=== PATIENT | male | born 1980 | race Caucasian/White ===

== ENCOUNTER 2019-11-14 15:40 | Emergency (ER) | payer SELFPAY ==
[2019-11-14] MEDS ORDERED: Ondansetron 4 MG/2 ML SDV IVPUSH ONE (16:22)
[2019-11-14] MEDS ORDERED: Sodium Chloride 0.9% 1,000 ML IV ONE (16:22)
[2019-11-14] MEDS ORDERED: Ketorolac 30 MG/ML SDV IVPUSH ONE (16:22)
--- NOTE | 2019-11-14 16:25 | EDM.PDOC ---
ED HPI GENERAL MEDICAL PROBLEM - General Chief Complaint: Abdominal Pain Stated Complaint: ABD PAIN Time Seen by Provider: 11/14/19 15:41 Source of Information: Reports: Patient History Limitations: Reports: No Limitations - History of Present Illness INITIAL COMMENTS - FREE TEXT/NARRATIVE: HISTORY AND PHYSICAL: History of present illness: Patient is a 39-year-old male who presents to the ED today with concern of left lower quadrant pain that has started since yesterday. Patient states he has had a history of diverticulitis in the past and that his pain today feels similar to past diverticulitis infection. Patient states that in the past he has been offered admission but states that he has always refused this and taken antibiotics at home with resolution of his symptoms. Patient states he has a history of cholecystectomy but denies any other abdominal surgeries. Patient denies any associated symptoms or any other symptoms or concerns. Patient denies fever, chills, chest pain, shortness of breath, or cough. Denies headache, neck stiff ness, change in vision, syncope, or near syncope. Denies nausea, vomiting, abdominal pain, diarrhea, constipation, or dysuria. Has not noted any blood in urine or stool. Patient has been eating and drinking appropriately. Review of systems: As per history of present illness and below otherwise all systems reviewed and negative. Past medical history: As per history of present illness and as reviewed below otherwise noncontributory. Surgical history: As per history of present illness and as reviewed below otherwise noncontributory. Social history: See social history for further information Family history: As per history of present illness and as reviewed below otherwise noncontributory. Physical exam: General: Patient is alert, oriented, and in no acute distress. Patient laying comfortably on exam table. HEENT: Atraumatic, normocephalic, pupils equal and reactive bilaterally, negative for conjunctival pallor or scleral icterus, mucous membranes moist, TMs normal bilaterally, throat clear, neck supple, nontender, trachea midline. No drooling or trismus noted. No meningeal signs. No hot potato voice noted. Lungs: Clear to auscultation, breath sounds equal bilaterally, chest nontender. Heart: S1S2, regular rate and rhythm without overt murmur Abdomen: Soft, nondistended, moderate-severe tenderness to palpation of the LLQ without guarding. Negative for masses or hepatosplenomegaly. Negative for costovertebral tenderness. Pelvis: Stable nontender. Genitourinary: Deferred. Rectal: Deferred. Skin: Intact, warm, dry. No lesions or rashes noted. Extremities: Atraumatic, negative for cords or calf pain. Neurovascular unremarkable. Neuro: Awake, alert, oriented. Cranial nerves II through XII unremarkable. Cerebellum unremarkable. Motor and sensory unremarkable throughout. Exam nonfocal. Notes: Discussed importance for follow-up with a primary care provider as well as general surgery. Patient placed on expedited follow-up list for follow-up with primary care. Voices understanding and is agreeable to plan of care. Denies any further questions or concerns at this time. Diagnostics: CBC, CMP, UA, lipase, abd pelvic CT w cont Therapeutics: NS, Zofran, Toradol, Morphine Prescription: Flagyl, Ciprofloxacin Impression: Acute diverticulitis, uncomplicated Plan: 1. Take medication as prescribed. You can alternate ibuprofen and Tylenol as directed for pain and discomfort. 2. Remain on a clear liquid diet for the next 1 to 2 days. Then advance diet as tolerated. 3. Follow-up with a primary care provider as well as a general surgeon as discussed. 4. Turn to the ED as needed and as discussed. Definitive disposition and diagnosis as appropriate pending reevaluation and review of above. Abdominal Pain Pain Score (Numeric/FACES): 10 - Related Data Allergies Allergy/AdvReac Type Severity Reaction Status Date / Time No Known Allergies Allergy Verified 11/14/19 16:08 Home Meds: Home Meds Levothyroxine Sodium [Synthroid] 25 mcg PO DAILY 11/14/19 [History] Past Medical History Other Gastrointestinal History: Diverticulitis Endocrine/Metabolic History: Reports: Hypothyroidism - Infectious Disease History Infectious Disease History: Reports: Chicken Pox - Past Surgical History GI Surgical History: Reports: Cholecystectomy Social & Family History - Tobacco Use Smoking Status *Q: Current Every Day Smoker Years of Tobacco use: 15 Packs/Tins Daily: 1 - Caffeine Use Caffeine Use: Reports: Soda - Recreational Drug Use Recreational Drug Use: No Recreational Drug Type: Reports: Marijuana/Hashish ED ROS GENERAL - Review of Systems Review Of Systems: Comprehensive ROS is negative, except as noted in HPI. ED EXAM, GENERAL - Physical Exam Exam: See Below (see dictation) Course - Vital Signs Last Recorded V/S: Last Vital Signs Temp 97.5 F 04/04/20 16:09 Pulse 87 11/14/19 17:40 Resp 18 11/14/19 17:40 BP 136/85 11/14/19 17:40 Pulse Ox 98 11/14/19 17:40 - Orders/Labs/Meds Labs: Laboratory Tests 11/14/19 11/14/19 11/14/19 Range/Units 16:18 16:36 16:39 WBC 6.44 (4.0-11.0) K/uL RBC 5.75 (4.50-5.90) M/uL Hgb 17.3 H (13.0-17.0) g/dL Hct 50.5 H (38.0-50.0) % MCV 87.8 (80.0-98.0) fL MCH 30.1 (27.0-32.0) pg MCHC 34.3 (31.0-37.0) g/dL RDW Std Deviation 43.1 (28.0-62.0) fl RDW Coeff of Valerie 13 (11.0-15.0) % Plt Count 150 (150-400) K/uL MPV 10.60 (7.40-12.00) fL Neut % (Auto) 77.3 (48.0-80.0) % Lymph % (Auto) 11.6 L (16.0-40.0) % [place] % (Auto) 10.4 (0.0-15.0) % Eos % (Auto) 0.5 (0.0-7.0) % Baso % (Auto) 0.2 (0.0-1.5) % Neut # (Auto) 5.0 (1.4-5.7) K/uL Lymph # (Auto) 0.8 (0.6-2.4) K/uL [place] # (Auto) 0.7 (0.0-0.8) K/uL Eos # (Auto) 0.0 (0.0-0.7) K/uL Baso # (Auto) 0.0 (0.0-0.1) K/uL Nucleated RBC % 0.0 /100WBC Nucleated RBCs # 0 K/uL Sodium 137 (136-148) mmol/L Potassium 4.2 (3.5-5.1) mmol/L Chloride 100 (98-107) mmol/L Carbon Dioxide 26.5 (21.0-32.0) mmol/L BUN 14 (7.0-18.0) mg/dL Creatinine 1.2 (0.8-1.3) mg/dL Est Cr Clr Drug Dosing 86.18 mL/min Estimated GFR (MDRD) > 60.0 ml/min Glucose 103 (74-106) mg/dL Calcium 9.0 (8.5-10.1) mg/dL Total Bilirubin 0.8 (0.2-1.0) mg/dL AST 89 H (15-37) IU/L ALT 95 H (14-63) IU/L Alkaline Phosphatase 102 (46-116) U/L Total Protein 8.0 (6.4-8.2) g/dL Albumin 3.7 (3.4-5.0) g/dL Globulin 4.3 H (2.6-4.0) g/dL Albumin/Globulin Ratio 0.9 (0.9-1.6) Lipase 77 (73-393) U/L Urine Color DARK YELLOW Urine Appearance CLEAR Urine pH 5.5 (5.0-8.0) Ur Specific [place] >= 1.030 (1.001-1.035) Urine Protein 30 H (NEGATIVE) mg/dL Urine Glucose (UA) NEGATIVE (NEGATIVE) mg/dL Urine Ketones TRACE H (NEGATIVE) mg/dL Urine Occult Blood NEGATIVE (NEGATIVE) Urine Nitrite NEGATIVE (NEGATIVE) Urine Bilirubin MODERATE H (NEGATIVE) Urine Ictotest NEGATIVE Urine Urobilinogen 1.0 (<2.0) EU/dL Ur Leukocyte Esterase NEGATIVE (NEGATIVE) Urine RBC 0-1 (0-2/HPF) Urine WBC 0-2 (0-5/HPF) Ur Epithelial Cells FEW (NONE-FEW) Amorphous Sediment LIGHT (NEGATIVE) Urine Bacteria 3+ H (NEGATIVE) Urine Mucus LIGHT (NONE-MOD) Meds: Medications Discontinued Medications Generic Name Dose Route Start Last Admin Trade Name Freq PRN Reason Stop Dose Admin Sodium Chloride 1,000 mls @ 999 mls/hr 11/14/19 16:22 11/14/19 16:43 Normal Saline IV 11/14/19 17:22 999 mls/hr STAT ONE Administration Ketorolac Tromethamine 30 mg 11/14/19 16:22 11/14/19 16:45 Toradol IVPUSH 11/14/19 16:23 30 mg ONETIME ONE Administration Morphine Sulfate 2 mg 11/14/19 17:43 Morphine IVPUSH 11/14/19 17:44 ONETIME ONE Ondansetron HCl 4 mg 11/14/19 16:22 11/14/19 16:48 Zofran IVPUSH 11/14/19 16:23 Not Given ONETIME ONE Departure - Departure Time of Disposition: 17:56 Disposition: Home, Self-Care 01 Clinical Impression: Diverticulitis - Discharge Information Referrals: PCP,Not In Area [Primary Care Provider] - Forms: ED Department Discharge Additional Instructions: The following information is given to patients seen in the emergency department who are being discharged to home. This information is to outline your options for follow-up care. We provide all patients seen in our emergency department with a follow-up referral. The need for follow-up, as well as the timing and circumstances, are variable depending upon the specifics of your emergency department visit. If you don't have a primary care physician on staff, we will provide you with a referral. We always advise you to contact your personal physician following an emergency department visit to inform them of the circumstance of the visit and for follow-up with them and/or the need for any referrals to a consulting specialist. The emergency department will also refer you to a specialist when appropriate. This referral assures that you have the opportunity for follow-up care with a specialist. All of these measure are taken in an effort to provide you with optimal care, which includes your follow-up. Under all circumstances we always encourage you to contact your private physician who remains a resource for coordinating your care. When calling for follow-up care, please make the office aware that this follow-up is from your recent emergency room visit. If for any reason you are refused follow-up, please contact the [facility] Emergency Department at and asked to speak to the emergency department charge nurse. [facility] [address] [place] [id number] [id number] [facility] [place] - General Surgery Professional [address], [address] [place] [address] 1. Take medication as prescribed. You can alternate ibuprofen and Tylenol as directed for pain and discomfort. 2. Remain on a clear liquid diet for the next 1 to 2 days. Then advance diet as tolerated. 3. Follow-up with a primary care provider as well as a general surgeon as discussed. 4. Turn to the ED as needed and as discussed. Sepsis Event Note - Evaluation Sepsis Screening Result: No Definite Risk - Focused Exam Vital Signs: Vital Signs Temp Pulse Resp BP Pulse Ox 11/14/19 17:40 87 18 136/85 98 11/14/19 16:09 97.5 F 92 16 138/83 97 Date Exam was Performed: 11/14/19 Time Exam was Performed: 17:55
[2019-11-14 17:15] LABS: BLOOD UREA NITROGEN,BUN 14 mg/dL (7.0-18.0); CARBON DIOXIDE,CO2 26.5 mmol/L (21.0-32.0); CHLORIDE,CL 100 mmol/L (98-107); GLUCOSE RANDOM 103 mg/dL (74-106); LIPASE 77 U/L (73-393); POTASSIUM,K 4.2 mmol/L (3.5-5.1); SODIUM,NA 137 mmol/L (136-148)
[2019-11-14] MEDS ORDERED: Morphine 2 MG/ML Syringe IVPUSH ONE (17:43)
--- NOTE | 2019-11-14 17:46 | CT ---
CT abdomen and pelvis Technique: Multiple axial sections were obtained from above the dome of the diaphragm inferiorly through the pubic symphysis. Intravenous contrast was utilized. No oral contrast has been given. Findings: Inflammatory change is noted around a portion of the sigmoid colon. There is mild diverticulosis being seen and findings most likely represent diverticulitis. No fluid collections of abscess are seen. No free fluid is identified. Other findings: Visualized lung bases showed nothing acute. Liver contains no focal parenchymal abnormality. Spleen appears within normal limits. Surgical clips are seen from prior cholecystectomy. Adrenal glands show no nodule. Pancreas shows no discrete abnormality. Aorta shows no aneurysm. No retroperitoneal adenopathy or mesenteric abnormalities are seen. No pelvic mass or adenopathy is identified. Appendix is felt to be visualized which is within normal limits. Bone window settings were reviewed which showed no acute osseous finding. Impression: 1. Findings compatible with mild diverticulosis involving the sigmoid colon. 2. No other acute finding is seen on CT study of the abdomen and pelvis. Diagnostic code #3 Study was dictated in MDT
== END 2019-11-14 18:29 | disposition home or self-care (01) ==
LOC: MW.ED 15:40
DX: K57.32 Diverticulitis of large intestine without perforation or abscess without bleeding (principal); F17.210 Nicotine dependence, cigarettes, uncomplicated; E03.9 Hypothyroidism, unspecified; Z79.899 Other long term (current) drug therapy
CPT/HCPCS: 36415; 74177; 80053; 81001; 83690; 85025; 96361; 96374; 96375; 99284; J1885; J2270; J7030

== ENCOUNTER 2021-07-08 11:26 | Emergency (ER) | payer SELFPAY ==
[2021-07-08] MEDS ORDERED: Sodium Chloride 0.9% 2.5 ML Syringe FLUSH PRN (12:19)
[2021-07-08] MEDS ORDERED: Sodium Chloride 0.9% 10 ML Syringe FLUSH PRN (12:19)
[2021-07-08] MEDS ORDERED: HYDROmorphone 1 MG/ML Syringe IVPUSH ONE ×2 (12:20→14:43)
[2021-07-08] MEDS ORDERED: Ondansetron 4 MG/2 ML SDV IVPUSH ONE ×2 (12:20→14:43)
[2021-07-08] MEDS ORDERED: Sodium Chloride 0.9% 1,000 ML IV ONE ×2 (12:20→14:46)
--- NOTE | 2021-07-08 12:27 | EDM.PDOC ---
ED HPI GENERAL MEDICAL PROBLEM - General Chief Complaint: Abdominal Pain Stated Complaint: STOMACH PAIN Time Seen by Provider: 07/08/21 11:31 Source of Information: Reports: Patient History Limitations: Reports: No Limitations - History of Present Illness INITIAL COMMENTS - FREE TEXT/NARRATIVE: HISTORY AND PHYSICAL: History of present illness: The patient is a 34-year-old male who presents to the emergency department with complaints of mid abdominal pain that started around 07:00 this morning. The patient has a history of diverticulitis but states this is not the same pain. The patient states that he is unable to eat as he has been having vomiting yellow-green bile. Patient denies any fever, chills, headache, change in vision, syncope or near syncope. Denies any chest pain, back pain, shortness of breath or cough. Denies any diarrhea, constipation or dysuria. Has not noted any blood in urine or stool. Review of systems: As per history of present illness and below otherwise all systems reviewed and negative. Past medical history: As per history of present illness and as reviewed below otherwise noncontributory. Surgical history: As per history of present illness and as reviewed below otherwise noncontributory. Social history: See social history for further information Family history: As per history of present illness and as reviewed below otherwise noncontributory. Physical exam: General: Well developed and well nourished. Alert and orientated x 3. Nontoxic in appearance and in no acute distress. Vital signs are stable and have been reviewed by me. Nursing notes were reviewed. HEENT: Atraumatic, normocephalic, pupils equal and reactive bilaterally, negative for conjunctival pallor or scleral icterus, mucous membranes moist, TMs normal bilaterally, throat clear, neck supple, nontender, trachea midline. No drooling or trismus noted. No meningeal signs. No hot potato voice noted. Lungs: Clear to auscultation bilaterally. No wheezes, rales, or rhonchi. Chest nontender. Normal work of breathing, no accessory muscles used. Heart: S1S2, regular rate and rhythm without overt murmur, gallops, or rubs. No JVD. No peripheral edema Abdomen: Soft, nondistended, mid abdominal tenderness. Normoactive bowel sounds. Negative for masses or costovertebral tenderness. Skin: Intact, warm, dry. No lesions or rashes noted. Hematologic: No petechiae or purpra. Mucosa appropriate color and normal nail bed color and refill. Extremities: Atraumatic, moves all extremities per self without difficulty or deficits, negative for cords or calf pain. Neurovascular unremarkable. Neuro: Awake, alert, oriented. Cranial nerves II through XII unremarkable. Cerebellum unremarkable. Motor and sensory unremarkable throughout. Exam nonfocal. Psychiatric: Mood and affect are appropriate. Normal thought process. Answering questions appropriately. Notes: *This patient was seen and evaluated during the 2019 SARS-CoV-2 novel coronavirus pandemic period. Community viral transmission is ongoing at time of this encounter and the emergency department is operating under pandemic response procedures. As stated above the patient is a 40-year-old male who presents to the emergency department with very umbilical abdominal pain that started this morning. The patient does have a previous history of diverticulitis but states this is not the same type of pain. I will treat the patient's pain with IV fluids, Zofran, and Dilaudid. I have ordered a CBC, CMP, urinalysis, and CT of abdomen/pelvis with contrast. The patient is agreeable with this plan. The patient's CBC is remarkable for a white blood cell count of 15.28 with neutrophils of 83.8. The patient's chemistry is unremarkable. The CT IMPRESSION: Appendix appears mildly dilated up to 9 millimeters, increased from the prior exam. There is currently no significant adjacent inflammatory changes, however, this could represent an early appendicitis. Also, there is mild wall thickening of the sigmoid colon over a long segment at the area of prior diverticulitis. There is currently no adjacent inflammatory changes to suggest active inflammation, however, cannot exclude an early diverticulitis. Recommend ensuring that the patient is up-to-date on colon cancer screening. I consulted with Dr. Babin, surgeon, regarding possible early appendicitis or diverticulitis. Dr. Lamb came into the emergency department and reviewed the CT. I had treated the patient with 2 rounds of Zofran and 2 rounds of Dilaudid long with IV fluids. The patient was feeling okay at the time and stated that he did not need to be examined by Dr. Babin. I informed Dr. Babin of this. I have prescribed Cipro 500 mg p.o. twice daily for 10 days along with Metronidazole 500mg by mouth every eight hours for 10 days and Zofran 4 mg ODT every 6 hours as needed for nausea. I have educated the patient that he needs to follow-up with his primary care that he possibly needs to get a colonoscopy. The patient is agreeable with this discharge plan. I have talked with the patient about today's findings, in addition to providing specific details for plan of care. Reassessment at the time of disposition demo nstrates that the patient is in no acute distress. The patient is stable for discharge, counseling was provided and we discussed in great detail signs and symptoms that would prompt them to return to the Emergency Department. Medication, follow up and supportive care measures were reviewed and discussed. Voices understanding and is agreeable to plan of care. Denies any further questions or concerns at this time. Diagnostics: CBC, CMP, urinalysis, CT of abdomen/pelvis Therapeutics: IV fluids, Zofran, Dilaudid Prescription:Cipro 500 mg p.o. twice daily for 10 days and Metronidazole 500mg by mouth every eight hours for 10 days and Zofran 4 mg ODT every 6 hours as needed for nausea Impression: Abdominal pain Plan: 1. You were evaluated today on an emergent basis. Your complaints of lower abdominal pain was evaluated with blood work and your white blood cell count was found to be elevated. Your CT IMPRESSION: Appendix appears mildly dilated up to 9 millimeters, increased from the prior exam. There is currently no significant adjacent inflammatory changes, however, this could represent an early appendicitis. Also, there is mild wall thickening of the sigmoid colon over a long segment at the area of prior diverticulitis. There is currently no adjacent inflammatory changes to suggest active inflammation, however, cannot exclude an early diverticulitis. Recommend ensuring that the patient is up-to-date on colon cancer screening. As stated in your CT results if you have not had a colonoscopy due to your history of the wall thickening of the sigmoid colon you really need to get one. The surgeon did come in and you declined to be examined by time. I have started you on Cipro 500 mg p.o. twice daily for 10 days and Metronidazole 500mg by mouth every eight hours for 10 days and Zofran 4 mg ODT every 6 hours as needed for nausea was sent to [facility]. As we talked about if you are pain is uncontrollable or you are unable to control your nausea you need to return to the emergency department. if you develop a fever you need to return to the emergency department. 2. You can alternate Tylenol and ibuprofen as needed for pain and fever management. 3. We encourage you to follow up with your primary care provider and/or recommended specialist in the next few days for re-evaluation and further care/management. 4. If your symptoms should worsen, new symptoms develop or any of the signs and symptoms we discussed should arise please return to the emergency room or call 911 (if needed). Definitive disposition and diagnosis as appropriate pending reevaluation and review of above. Abdomen Pain Score (Numeric/FACES): 10 - Related Data Allergies Allergy/AdvReac Type Severity Reaction Status Date / Time No Known Allergies Allergy Verified 07/08/21 12:16 Home Meds: Home Meds Levothyroxine Sodium [Synthroid] 25 mcg PO DAILY 11/14/19 [History] Ciprofloxacin [Ciprofloxacin HCl] 500 mg PO Q12H 10 Days #19 tab 07/08/21 [Rx] Ondansetron [Zofran ODT] 4 mg PO Q6H PRN #10 tab.dis 07/08/21 [Rx] metroNIDAZOLE [Metronidazole] 500 mg PO Q8HR 10 Days #29 tablet 07/08/21 [Rx] Past Medical History Other Gastrointestinal History: Diverticulitis Endocrine/Metabolic History: Reports: Hypothyroidism - Infectious Disease History Infectious Disease History: Reports: Chicken Pox - Past Surgical History GI Surgical History: Reports: Cholecystectomy Social & Family History - Caffeine Use Caffeine Use: Reports: Soda ED ROS GENERAL - Review of Systems Review Of Systems: Comprehensive ROS is negative, except as noted in HPI. ED EXAM, GI/ABD - Physical Exam Exam: See Below (See dictation) Course - Vital Signs Last Recorded V/S: Last Vital Signs Temp 97.3 F 07/08/21 15:32 Pulse 58 L 07/08/21 15:42 Resp 16 07/08/21 15:42 BP 110/73 07/08/21 15:42 Pulse Ox 98 07/08/21 15:42 - Orders/Labs/Meds Orders: Active Orders 24 hr Category Date Time Status Saline Lock Insert [OM.PC] Stat Oth 07/08/21 12:19 Ordered Labs: Laboratory Tests 07/08/21 07/08/21 Range/Units 12:15 12:15 WBC 15.28 H (4.0-11.0) K/uL RBC 5.69 (4.50-5.90) M/uL Hgb 17.3 H (13.0-17.0) g/dL Hct 48.4 (38.0-50.0) % MCV 85.1 (80.0-98.0) fL MCH 30.4 (27.0-32.0) pg MCHC 35.7 (31.0-37.0) g/dL RDW Std Deviation 42.0 (28.0-62.0) fl RDW Coeff of Valerie 14 (11.0-15.0) % Plt Count 282 (150-400) K/uL MPV 10.70 (7.40-12.00) fL Neut % (Auto) 83.8 H (48.0-80.0) % Lymph % (Auto) 9.9 L (16.0-40.0) % Stewart % (Auto) 6.1 (0.0-15.0) % Eos % (Auto) 0.1 (0.0-7.0) % Baso % (Auto) 0.1 (0.0-1.5) % Neut # (Auto) 12.8 H (1.4-5.7) K/uL Lymph # (Auto) 1.5 (0.6-2.4) K/uL Stewart # (Auto) 0.9 H (0.0-0.8) K/uL Eos # (Auto) 0.0 (0.0-0.7) K/uL Baso # (Auto) 0.0 (0.0-0.1) K/uL Nucleated RBC % 0.0 /100WBC Nucleated RBCs # 0 K/uL Sodium 140 (136-148) mmol/L Potassium 4.4 (3.5-5.1) mmol/L Chloride 101 (98-107) mmol/L Carbon Dioxide 25.8 (21.0-32.0) mmol/L BUN 14 (7.0-18.0) mg/dL Creatinine 1.0 (0.8-1.3) mg/dL Est Cr Clr Drug Dosing 102.40 mL/min Estimated GFR (MDRD) > 60.0 ml/min Glucose 115 H (74-106) mg/dL Calcium 9.6 (8.5-10.1) mg/dL Total Bilirubin 0.6 (0.2-1.0) mg/dL AST 20 (15-37) IU/L ALT 21 (14-63) IU/L Alkaline Phosphatase 87 (46-116) U/L Total Protein 9.0 H (6.4-8.2) g/dL Albumin 4.3 (3.4-5.0) g/dL Globulin 4.7 H (2.6-4.0) g/dL Albumin/Globulin Ratio 0.9 (0.9-1.6) Meds: Medications Discontinued Medications Generic Name Dose Route Start Last Admin Trade Name Freq PRN Reason Stop Dose Admin Ciprofloxacin 500 mg 07/08/21 15:08 07/08/21 15:29 Ciprofloxacin 500 Mg Tab PO 07/08/21 15:09 500 mg ONETIME ONE Administration Hydromorphone HCl 1 mg 07/08/21 12:20 07/08/21 12:33 Hydromorphone 1 Mg/Ml Syringe IVPUSH 07/08/21 12:21 1 mg ONETIME ONE Administration Hydromorphone HCl 1 mg 07/08/21 14:43 07/08/21 14:51 Hydromorphone 1 Mg/Ml Syringe IVPUSH 07/08/21 14:44 1 mg ONETIME ONE Administration Sodium Chloride 1,000 mls @ 999 mls/hr 07/08/21 12:20 07/08/21 12:24 Normal Saline IV 07/08/21 13:20 999 mls/hr .BOLUS ONE Administration Sodium Chloride 1,000 mls @ 999 mls/hr 07/08/21 14:46 07/08/21 14:55 Normal Saline IV 07/08/21 15:46 999 mls/hr .BOLUS ONE Administration Iopamidol 100 ml 07/08/21 13:13 07/08/21 13:14 Iopamidol 755 Mg/Ml 500 Ml Multipack Bottle IVPUSH 07/08/21 13:14 100 ml ONETIME ONE Administration Metronidazole 500 mg 07/08/21 15:09 07/08/21 15:29 Metronidazole 250 Mg Tab PO 07/08/21 15:10 500 mg ONETIME ONE Administration Ondansetron HCl 4 mg 07/08/21 12:20 07/08/21 12:33 Ondansetron 4 Mg/2 Ml Sdv IVPUSH 07/08/21 12:21 4 mg ONETIME ONE Administration Ondansetron HCl 4 mg 07/08/21 14:43 07/08/21 14:52 Ondansetron 4 Mg/2 Ml Sdv IVPUSH 07/08/21 14:44 4 mg ONETIME ONE Administration Sodium Chloride 10 ml 07/08/21 12:19 07/08/21 12:24 Sodium Chloride 0.9% 10 Ml Syringe FLUSH 10 ml ASDIRECTED PRN Administration Keep Vein Open Sodium Chloride 2.5 ml 07/08/21 12:19 07/08/21 12:24 Sodium Chloride 0.9% 2.5 Ml Syringe FLUSH 2.5 ml ASDIRECTED PRN Administration Keep Vein Open Departure - Departure Time of Disposition: 15:25 Disposition: Home, Self-Care 01 Condition: Good Clinical Impression: Abdominal pain Qualifiers: Abdominal location: generalized Qualified Code(s): R10.84 - Generalized abdominal pain - Discharge Information Prescriptions: Ciprofloxacin [Ciprofloxacin HCl] 500 mg PO Q12H 10 Days #19 tab metroNIDAZOLE [Metronidazole] 500 mg PO Q8HR 10 Days #29 tablet Ondansetron [Zofran ODT] 4 mg PO Q6H PRN #10 tab.dis PRN Reason: Nausea Referrals: Senia Ferrell DO [Primary Care Provider] - Forms: ED Department Discharge Additional Instructions: The following information is given to patients seen in the emergency department who are being discharged to home. This information is to outline your options for follow-up care. We provide all patients seen in our emergency department with a follow-up referral. The need for follow-up, as well as the timing and circumstances, are variable depending upon the specifics of your emergency department visit. If you don't have a primary care physician on staff, we will provide you with a referral. We always advise you to contact your personal physician following an emergency department visit to inform them of the circumstance of the visit and for follow-up with them and/or the need for any referrals to a consulting specialist. The emergency department will also refer you to a specialist when appropriate. This referral assures that you have the opportunity for follow-up care with a sp ecialist. All of these measure are taken in an effort to provide you with optimal care, which includes your follow-up. Under all circumstances we always encourage you to contact your private physicia n who remains a resource for coordinating your care. When calling for follow-up care, please make the office aware that this follow-up is from your recent emergency room visit. If for any reason you are refused follow-up, please contact the [facility] Emergency Department at and asked to speak to the emergency department charge nurse. [facility] [address] [place] [id number] [facility] [address] [place] [address] Plan: 1. You were evaluated today on an emergent basis. Your complaints of lower abdominal pain was evaluated with blood work and your white blood cell count was found to be elevated. Your CT IMPRESSION: Appendix appears mildly dilated up to 9 millimeters, increased from the prior exam. There is currently no significant adjacent inflammatory changes, however, this could represent an early appendicitis. Also, there is mild wall thickening of the sigmoid colon over a long segment at the area of prior diverticulitis. There is currently no adjacent inflammatory changes to suggest active inflammation, however, cannot exclude an early diverticulitis. Recommend ensuring that the patient is up-to-date on colon cancer screening. As stated in your CT results if you have not had a colonoscopy due to your history of the wall thickening of the sigmoid colon you really need to get 1. The surgeon did come in and you declined to be examined by time. I have started you on Cipro 500 mg p.o. twice daily for 10 days and Metronidazole 500mg by mouth every eight hours for 10 days and Zofran 4 mg ODT every 6 hours as needed for nausea was sent to [facility]. As we talked about if you are pain is uncontrollable or you are unable to control your nausea you need to return to the emergency department. if you develop a fever you need to return to the emergency department. 2. You can alternate Tylenol and ibuprofen as needed for pain and fever management. 3. We encourage you to follow up with your primary care provider and/or recommended specialist in the next few days for re-evaluation and further care/management. 4. If your symptoms should worsen, new symptoms develop or any of the signs and symptoms we discussed should arise please return to the emergency room or call 911 (if needed). Sepsis Event Note (ED) - Focused Exam Vital Signs: Vital Signs Temp Pulse Resp BP Pulse Ox 07/08/21 15:42 58 L 16 110/73 98 07/08/21 15:32 97.3 F 57 L 16 114/69 97 07/08/21 12:17 96.6 F L 58 L 20 137/86 96 - My Orders Last 24 Hours: My Active Orders 07/08/21 12:19 Saline Lock Insert [OM.PC] Stat - Assessment/Plan Last 24 Hours: My Active Orders 07/08/21 12:19 Saline Lock Insert [OM.PC] Stat
[2021-07-08 12:50] LABS: BLOOD UREA NITROGEN,BUN 14 mg/dL (7.0-18.0); CARBON DIOXIDE,CO2 25.8 mmol/L (21.0-32.0); CHLORIDE,CL 101 mmol/L (98-107); GLUCOSE RANDOM 115 mg/dL (74-106); POTASSIUM,K 4.4 mmol/L (3.5-5.1); SODIUM,NA 140 mmol/L (136-148)
[2021-07-08] MEDS ORDERED: Iopamidol 755 MG/ML 500 ML Multipack Bottle IVPUSH ONE (13:13)
--- NOTE | 2021-07-08 14:28 | CT ---
INDICATION: Mid abdominal pain TECHNIQUE: CT abdomen and pelvis acquired with IV contrast. COMPARISON: CT abdomen and pelvis November 14, 2019 FINDINGS: Lower chest: 4 millimeter nodule within the left lower lobe stable from November 14, 2019 exam Liver: Mild hepatomegaly measuring 17.6 centimeters craniocaudal. Focal fat adjacent to the falciform ligament. Spleen: Unremarkable. Pancreas: Unremarkable. Gallbladder and bile ducts: Postcholecystectomy changes. Kidneys: Unremarkable. Adrenal glands: Unremarkable. GI tract: Mild wall thickening of the sigmoid colon over a long segment and extending slightly into the right colon. Numerous diverticula in this area. Stool is visualized throughout the colon.. Appendix measures up to 9 millimeters and appears mostly fluid filled, previously the appendix measured up to 7 millimeters. There are no significant adjacent inflammatory changes. Vascular structures: Negative. No sign of aneurysm. Lymph nodes: Unremarkable. Miscellaneous: Unremarkable. No free air or significant free fluid. Pelvic Organs: Unremarkable. Bones: Unremarkable for age. IMPRESSION: Appendix appears mildly dilated up to 9 millimeters, increased from the prior exam. There is currently no significant adjacent inflammatory changes, however, this could represent an early appendicitis. Also, there is mild wall thickening of the sigmoid colon over a long segment at the area of prior diverticulitis. There is currently no adjacent inflammatory changes to suggest active inflammation, however, cannot exclude an early diverticulitis. Recommend ensuring that the patient is up-to-date on colon cancer screening Mild hepatomegaly 4 millimeter nodule within left lower lobe is stable from November 14, [address] all [address] scans at this facility use dose modulation, iterative reconstruction, and/or weight-based dosing when appropriate to reduce radiation dose to as low as reasonably achievable. Dictated by Alma Delia Brady MD @ 07/08/2021 2:28:13 PM (Electronically Signed)
[2021-07-08] MEDS ORDERED: Ciprofloxacin 500 MG Tab PO ONE (15:08)
[2021-07-08] MEDS ORDERED: metroNIDAZOLE 250 MG Tab PO ONE (15:09)
== END 2021-07-08 15:45 | disposition home or self-care (01) ==
LOC: MW.ED 11:26
DX: R10.84 Generalized abdominal pain (principal); E03.9 Hypothyroidism, unspecified; Z79.899 Other long term (current) drug therapy
CPT/HCPCS: 36415; 74177; 80053; 85025; 96374; 96375; 96376; 99284; A9270; J1170; J2405; J7030; Q9967

== ENCOUNTER 2024-04-28 14:08 | Emergency (ER) | payer BC ==
[2024-04-28] MEDS: Tetracaine HCl/PF 0.5% 4 ML Bottle EYERT STA (16:50)
[2024-04-28] MEDS ORDERED: Diphtheria,Pertussis(Acell),Tetanus Vaccine 0.5 ML Syringe IM ONE (17:48)
== END 2024-04-28 18:03 | disposition home or self-care (01) ==
LOC: MW.ED 14:08
DX: T15.01XA Foreign body in cornea, right eye, initial encounter (principal); E03.9 Hypothyroidism, unspecified; F17.210 Nicotine dependence, cigarettes, uncomplicated; Z90.49 Acquired absence of other specified parts of digestive tract; Z79.890 Hormone replacement therapy; Z75.8 Other problems related to medical facilities and other health care; W44.9XXA Unspecified foreign body entering into or through a natural orifice, initial encounter
CPT/HCPCS: 65220; 99283-25; J3490